=== PATIENT | female | born 1970 | race Caucasian/White ===

== ENCOUNTER → 2017-07-27 10:13 | Outpatient (CLI) | payer MEDICAID, SELFPAY ==
[2017-07-27 11:06] LABS: Basophil# 0.03 X10^3/uL; Basophil% 0.6 % (0-1); Eosinophil# 0.27 X10^3/uL; Eosinophils% 5.8 % (0-5); Hematocrit 43.5 % (37-47); Hemoglobin 14.7 g/dl (12.0-15.0); Lymphocyte % 21.5 % (19-41); Mean Corp Hgb Conc 33.8 g/gl (32-36); Mean Corpuscular Hgb 32.7 pg (27.0-32.0); Mean Corpuscular Volume 96.7 fL (81-99); Mean Platelet Vol. 10.7 fl (6.2-12.0); Monocyte# 0.34 X10^3/uL; Monocyte% 7.3 % (0-10); Neutrophil # 2.99 X10^3/uL (2.7-7.7); Neutrophil % 64.4 % (47-70); Platelet Count 199 K/mm3 (150-450); RBC Distribution Width CV 12.3 % (11.6-14.6); White Blood Count 4.7 K/mm3 (4.4-11.0)
[2017-07-27 11:13] LABS: POSITIVE COUNT NO; POSITIVE DIFFERENTIAL NO; POSITIVE MORPHOLOGY NO
[2017-07-30 20:07] LABS: Aspirgillus flavus Negative (Neg:<1:1); Aspirgillus fumigatus Negative (Neg:<1:1)
[2017-07-31 08:11] LABS: Aspirgillus niger Negative (Neg:<1:1)
== END ==
PROVIDERS: Family Provider Student in an Organized Health Care Education/Training Program; PCP Student in an Organized Health Care Education/Training Program; Visit Provider Internal Medicine Critical Care Medicine
DX: J45.909 Unspecified asthma, uncomplicated (principal)
CPT/HCPCS: 36415; 85025; 86606

== ENCOUNTER → 2017-10-18 14:23 | Outpatient (CLI) | payer MEDICAID, SELFPAY ==
[2017-10-18 16:21] LABS: Hemoglobin A1c 5.7 % (4.2-6.3)
[2017-10-18 17:30] LABS: Follicle Stimulating Hormone 42.7 mIU/mL; Free T3 2.8 pg/mL (2.18-3.98); Glucose 77 mg/dL (74-106); Luteinizing Hormone 20.2 mIU/mL; Prolactin 5.3 ng/mL; T4 Free Direct 1.15 ng/dL (0.76-1.46); Thyroid Stim Hormone (TSH) 1.41 uIU/mL (0.358-3.74)
[2017-10-28 13:02] LABS: HPV HC, High Risk Negative (Negative); HPV Reflexed? YES, CHARGE PATIENT
== END ==
PROVIDERS: Visit Provider Obstetrics & Gynecology
DX: Z12.4 Encounter for screening for malignant neoplasm of cervix (principal); Z12.72 Encounter for screening for malignant neoplasm of vagina; N92.1 Excessive and frequent menstruation with irregular cycle
CPT/HCPCS: 36415; 82947; 83001; 83002; 83036; 84146; 84439; 84443; 84481; 87624; 88175; G0145

== ENCOUNTER → 2020-07-15 11:50 | Outpatient (CLI) | payer MEDICAID, SELFPAY ==
[2020-07-15 11:14] VITALS: BMI 33.7
[2020-07-15 12:42] LABS: Absolute Lymphocyte Count 1.17 X10^3/uL (0.83-4.51); Absolute Neutrophil Count 2.8 X10^3/uL (2.0-7.7); Basophil# 0.04 X10^3/uL; Basophil% 0.9 % (0-1); Eosinophil# 0.29 X10^3/uL; Eosinophils% 6.3 % (0-5); Hematocrit 44.2 % (37-47); Hemoglobin 14.4 g/dL (12.0-15.0); Lymphocyte # 1.17 X10^3/ul (4.0); Lymphocyte % 25.5 % (19-41); Mean Corp Hgb Conc 32.6 g/dL (32-36); Mean Corpuscular Hgb 31.2 pg (27.0-32.0); Mean Corpuscular Volume 95.9 fL (81-99); Mean Platelet Vol. 10.4 fl (6.2-12.0); Monocyte# 0.27 X10^3/uL; Monocyte% 5.9 % (0-10); NRBC Flagged by Analyzer 0 % (0-5); Neutrophil # 2.81 X10^3/uL (2.7-7.7); Neutrophil % 61.2 % (47-70); Platelet Count 222 K/mm3 (150-450); RBC Distribution Width CV 11.8 % (11.6-14.6); RBC Distribution Width SD 41.4 fl (35.1-43.9); Red Blood Count 4.61 M/mm3 (4.2-5.4); White Blood Count 4.6 K/mm3 (4.4-11.0)
[2020-07-17 20:08] LABS: Cytoplasmic Ab (C-ANCA) <1:20 titer (Neg:<1:20)
[2020-07-18 05:16] LABS: Immunoglobulin E 113 IU/mL (6-495); Perinuclear Ab (P-ANCA) <1:20 titer (Neg:<1:20)
[2020-07-18 09:08] LABS: Alternaria tenuis 0.97 kU/L (Class II); Ash, White 0.27 kU/L (Class 0/I); Aspergillus fumigatus 0.79 kU/L (Class II); Bermuda Grass 0.15 kU/L (Class 0/I); Birch <0.10 kU/L (Class 0); Black Walnut 0.22 kU/L (Class 0/I); Cat Hair / Dander,Stand 5.24 kU/L (Class IV); Cedar, Mountain 0.11 kU/L (Class 0/I); Cladosporium herbarum 0.19 kU/L (Class 0/I); Cottonwood 0.12 kU/L (Class 0/I); D farinae Mite <0.10 kU/L (Class 0); D pteronyssinus <0.10 kU/L (Class 0); Dog Epithelia 0.63 kU/L (Class II); Elm, American White 0.21 kU/L (Class 0/I); Immunoglobulin E 85 IU/mL (6-495); Maple/Box Elder 0.19 kU/L (Class 0/I); Mulberry, White <0.10 kU/L (Class 0); Oak, White 0.22 kU/L (Class 0/I); Pecan 0.15 kU/L (Class 0/I); Penicillium Notatum 0.15 kU/L (Class 0/I); Pigweed, Rough <0.10 kU/L (Class 0); Ragweed, Short/Common 0.17 kU/L (Class 0/I); Russian Thistle <0.10 kU/L (Class 0); Sheep Sorrel 0.18 kU/L (Class 0/I); Sycamore, American 0.24 kU/L (Class 0/I); Timothy Grass 0.23 kU/L (Class 0/I)
[2020-07-18 12:15] LABS: Mouse Urine <0.10 kU/L (Class 0)
== END ==
PROVIDERS: PCP Student in an Organized Health Care Education/Training Program; Referring Provider Internal Medicine Critical Care Medicine; Visit Provider Internal Medicine Critical Care Medicine
DX: J45.50 Severe persistent asthma, uncomplicated (principal)
CPT/HCPCS: 36415; 82785; 85025; 86003; 86256

== ENCOUNTER → 2022-10-05 | Outpatient (CLI) | payer MEDICAID, SELFPAY ==
[2022-10-05 09:19] LABS: Absolute Lymphocyte Count 1.34 X10^3/uL (0.83-4.51); Absolute Neutrophil Count 2.4 X10^3/uL (2.0-7.7); Basophil# 0.03 X10^3/uL; Basophil% 0.7 % (0-1); Eosinophil# 0.34 X10^3/uL; Eosinophils% 7.6 % (0-5); Hematocrit 46.9 % (37-47); Hemoglobin 15.6 g/dL (12.0-15.0); Lymphocyte # 1.34 X10^3/ul (0.83-4.51); Lymphocyte % 29.8 % (19-41); Mean Corp Hgb Conc 33.3 g/dL (32-36); Mean Corpuscular Hgb 32.4 pg (27.0-32.0); Mean Corpuscular Volume 97.3 fL (81-99); Mean Platelet Vol. 10.3 fl (6.2-12.0); Monocyte# 0.37 X10^3/uL; Monocyte% 8.2 % (0-10); NRBC Flagged by Analyzer 0 % (0-5); Neutrophil # 2.41 X10^3/uL (2.7-7.7); Neutrophil % 53.5 % (47-70); Platelet Count 222 K/mm3 (150-450); RBC Distribution Width CV 12.4 % (11.6-14.6); RBC Distribution Width SD 44.7 fl (35.1-43.9); Red Blood Count 4.82 M/mm3 (4.2-5.4); White Blood Count 4.5 K/mm3 (4.4-11.0)
[2022-10-05 09:23] LABS: Internal QC Validated? YES +Cl - CLEAR BKGD; Pregnancy, Urine Negative Negative
[2022-10-05 09:31] LABS: Anion Gap 3 (5-15); BUN 9 mg/dL (7-18); BUN/Creat Ratio 17.1 RATIO (10-20); Calcium,Total 8.8 mg/dL (8.5-10.1); Chloride 110 mmol/L (98-107); Creatinine, Serum 0.53 mg/dL (0.55-1.02); EST Glomerular Filtration Rate 130 mL/min (>60); Est Glom Filt Rate - Afr Amer 157 mL/min (>60); Glucose 98 mg/dL (74-106); Potassium 4.6 mmol/L (3.5-5.1); Sodium Level 141 mmol/L (136-145)
--- NOTE | 2022-10-05 16:26 | PCM.TILTTABL ---
Staff Staff: Amy Martinez and Graciela Genao Summary Pre Test Resting HR: 93 Pre Test Resting BP: 151/89 Minimum Test HR: 66 Maximum Test HR: 129 Minimum Test BP: 69/54 Maximum Test BP: 151/89 Physician Tilt Table Report Patient's Physicians Primary Care Physician: Nancy Dimas Quality Assurance Lead: Raheem Garcia Indications/Diagnosis: Dizziness Procedure Comments: The patient was brought to the noninvasive lab in the postabsorptive state. Initial blood pressure was obtained and heart rate recording 136/86 mmHg and a heart rate of 82 bpm. Patient was then positioned in the 70 degree head upright tilt position. Continuous EKG monitoring and blood pressures were obtained. Patient maintained sinus rhythm throughout the recording. At the end of the 20 minutes the patient was put back in the recumbent position and administered sublingual nitroglycerin. The tilt table was put back in the 70 degree position. Patient was noted to be briefly tachycardic and then became hypotensive as noted above symptomatic with nausea diaphoresis and relatively bradycardic. Patient also experienced dry heaves and vomiting. The patient was put back in the recumbent position with IV fluids and subsequently recovered. See vitals on sheet. Summary: Positive head upright tilt table test suggesting vasodepressive syncope.
[2022-10-05 16:31] VITALS: BP 151/89; BP 69/54
== END | disposition home or self-care (01) ==
PROVIDERS: PCP Student in an Organized Health Care Education/Training Program; Referring Provider Psychiatry & Neurology Neurology; Visit Provider Psychiatry & Neurology Neurology
DX: R42 Dizziness and giddiness (principal)
CPT/HCPCS: 36415; 80048; 81025; 85025; 93660; J7040